=== PATIENT | female | born 1965 | race Caucasian/White ===

== ENCOUNTER 2016-04-24 08:22 | Day surgery (SDC) | payer OTHER ==
[2016-04-12 08:45] VITALS: BMI 20.9
[~2016-04-24 08:22] MED LIST: LACTATED RINGERS 1,000 ML IV SCH
[2016-04-24 09:10] VITALS: RESP 18; TEMP 98.2
[2016-04-24] MEDS ORDERED: LIDOCAINE 1% 20 ML VIAL (10MG/ML) FOR IV START INTRADERMA ONE (09:10)
[2016-04-24] MEDS ORDERED: MIDAZOLAM 2 MG/2 ML VIAL ONE (09:21)
[2016-04-24] MEDS ORDERED: BUPIVACAINE (PF) 0.5% 30 ML VIAL ONE (09:21)
--- NOTE | 2016-04-24 09:51 | P.PCN ---
Date of Procedure: 04/24/16 Preoperative Diagnosis: Lumbar spondylosis without myelopathy Postoperative Diagnosis: Same as above Procedure(s) Performed: Lumbar bilateral medial branch block under fluoroscopic guidance Anesthesia: MAC Surgeon: Salinas Dixon Pathology: none sent Condition: stable Disposition: PACU Description of Procedure: The patient was seen in preop holding area consent was obtained then she was brought into the procedure room and placed in prone position. Skin was prepped with DuraPrep and draped in a sterile manner. Lidocaine 1% was used to numb the skin up at the target points that were chosen as follows: For the L5-S1 level which corresponds to the dorsal ramus of L5 the target points were the superior medial aspect of the sacral ala on each side of the spine on the AP view of fluoroscopy and for the L3 and L4 medial branches the target points were the connection between the transverse process and the superior articular process of L4 and L5 vertebra respectively on the oblique view of fluoroscopy. I used 22-gauge 3-1/2 inch Quincke spinal needles for this procedure and after contacting bone at the target points mentioned above I injected 1 mL of Marcaine 0.5%. No steroids were given during this procedure and no IV fentanyl was given either. Patient tolerated procedure well.
[2016-04-24 10:40] VITALS: BP 119/61; PULSE 77
[2016-04-24] MEDS ORDERED: IV FLUID CONTINUATION 1,000 ML IV ONE (10:40)
--- NOTE | 2016-04-24 11:14 | FL ---
FLUOROSCOPY 7 seconds of fluoroscopy time were utilized during lumbar facet block. 1 images document the procedur e.
== END 2016-04-24 10:48 | disposition home or self-care (01) ==
LOC: ORPAIN 08:22
PROVIDERS: ATTEND Anesthesiology
DX: M47.816 Spondylosis without myelopathy or radiculopathy, lumbar region (principal); Z88.8 Allergy status to other drugs, medicaments and biological substances
CPT/HCPCS: 81025; 64493; 64494; 64495; J2250

== ENCOUNTER → 2016-05-21 | Outpatient (CLI) | payer OTHER ==
--- NOTE | 2016-05-21 08:00 | USB ---
Reason for exam: clinical finding. Physical Findings: Nurse Summary: all soft, movable, nodular (nurse ts). US Breast LT Left breast ultrasound including all four quadrants, the retroareolar region and axilla demonstrates no cystic or solid lesion seen, dense tissue. These results were verbally communicated with the patient and result sheet given to the patient on 05/21/16. ASSESSMENT: Negative, BI-RAD 1 RECOMMENDATION: Follow-up diagnostic mammogram of both breasts in 6 months. Back on schedule for October 2016.
== END | disposition home or self-care (01) ==
LOC: RADUSWWP 06:56
PROVIDERS: ATTEND Internal Medicine
DX: R92.8 Other abnormal and inconclusive findings on diagnostic imaging of breast (principal)

== ENCOUNTER 2016-06-13 06:36 | Day surgery (SDC) | payer OTHER ==
[2016-06-12 12:05] VITALS: BMI 20.1
[2016-06-13] MEDS ORDERED: LACTATED RINGERS 1,000 ML IV SCH (07:45)
[2016-06-13 07:47] VITALS: RESP 16; TEMP 98.3
[2016-06-13] MEDS ORDERED: LIDOCAINE 1% 20 ML VIAL (10MG/ML) FOR IV START INTRADERMA ONE (07:52)
[2016-06-13] MEDS ORDERED: MIDAZOLAM 2 MG/2 ML VIAL ONE (08:20)
[2016-06-13] MEDS ORDERED: fentaNYL (PF) 50 MCG/ML 2 ML AMP ONE (08:20)
[2016-06-13] MEDS ORDERED: TRIAMCINOLONE ACETONIDE 40 MG/ML 1 ML VIAL ONE (08:20)
[2016-06-13] MEDS ORDERED: IV FLUID CONTINUATION 1,000 ML IV ONE ×2 (08:48)
--- NOTE | 2016-06-13 08:55 | P.PCN ---
Date of Procedure: 06/13/16 Surgeon: Alex Adams Pathology: none sent Condition: stable Disposition: PACU Description of Procedure: PREOPERATIVE DIAGNOSIS: Lumbar spondylosis without myelopathy and facet arthropathy POSTOPERATIVE DIAGNOSIS: Lumbar spondylosis without myelopathy and facet arthropathy PROCEDURES: Right Radiofrequency thermocoagulation, L3, L4, and L5 medial branch , with fluoroscopic guidance. ANESTHESIA: 1% lidocaine plain; Conscious sedation with versed/fentanyl EBL: Minimal PROCEDURE INDICATION: The patient with low back pain secondary to lumbar arthropathy who had more than 50% relief of pain with previous diagnostic lumbar medial branch block with bupivacaine. Patient presents for right lumbar RFA today; no use of blood thinners. PROCEDURE DESCRIPTION / TECHNIQUE: The patient was seen and identified in the preoperative area. Risks, benefits, complications, and alternatives were discussed with the patient (including but not limited to incomplete pain relief , bleeding, infection, nerve damage, and allergies to medications), the patient agreed to proceed with the procedure and signed the consent after all questions were answered. Patient was taken to the OR and time out was completed to verify proper patient , position, laterality of pain, and allergies. Pt was placed in the prone position. IV was started. Vital signs remained stable throughout the procedure. A pillow was placed under the patients chest to decrease lordosis. The lumbosacral area was prepped and draped in the usual sterile fashion. Vital signs were closely monitored during the procedure. Conscious sedation was used during the procedure to decrease patients anxiety. Using AP and then oblique fluoroscopy, the eye of the Luis Armando dog corresponding to the connection between the superior and transverse articular processes of right L4, L5 and top of the sacrum were identified, marked, and localized with 1% lidocaine. Subsequently, a 20 gauge, 100-mm radiofrequency cannula with a 10-mm active tip was advanced guided by fluoroscopy to each of the eyes of the Luis Armando dog at right L3, L4, and L5 medial branches. Each site then underwent sensory testing at 50 Hz and 0 to 1 volt and motor testing at 2 Hz and 0 to 3 volt with local stimulation, but no radicular symptoms down the legs. Thereafter the right L3, L4, and L5 medial branch sites underwent radiofrequency thermocoagulation at 80 degrees Celsius for 90 seconds after injecting 0.5 ml of PF lidocaine 1%. After thermocoagulation, 1 ml of the block solution containing Kenalog 40 mg and 2 mL of preservative-free normal saline was injected at the right L3, L4, and L5 medial branch levels after negative aspiration of CSF and blood and with no paresthesias. Cannulas were retracted while injecting lidocaine 1% until the needles were removed. At the end of the procedure, the skin was cleansed and bandages were applied. COMPLICATIONS: No acute complications. DISPOSITION / PLANS: The patient was placed in a supine position and transferred to the recovery area in a stable condition for observation and was discharged from the recovery room after meeting discharge criteria. Home discharge instructions given to the patient by the staff. The patient was reexamined prior to discharge. The patient will schedule a follow up for left lumbar RFA in 4-6 weeks.
--- NOTE | 2016-06-13 08:58 | FL ---
FLUOROSCOPY 14 seconds of fluoroscopy time were utilized during radiofrequency ablation. 3 images document the pr ocedure.
[2016-06-13 09:04] VITALS: BP 125/76; PULSE 82
== END 2016-06-13 09:16 | disposition home or self-care (01) ==
LOC: ORPAIN 06:36
PROVIDERS: ATTEND Anesthesiology
DX: M47.816 Spondylosis without myelopathy or radiculopathy, lumbar region (principal); M46.96 Unspecified inflammatory spondylopathy, lumbar region; F41.9 Anxiety disorder, unspecified; Z88.5 Allergy status to narcotic agent; Z79.1 Long term (current) use of non-steroidal anti-inflammatories (NSAID); Z79.82 Long term (current) use of aspirin; Z79.891 Long term (current) use of opiate analgesic; Z79.899 Other long term (current) drug therapy
CPT/HCPCS: 81025; 64635; 64636 ×2; 99152; J2250; J3301; J3010

== ENCOUNTER → 2017-10-13 | Outpatient (CLI) | payer OTHER ==
--- NOTE | 2017-10-13 23:07 | MR ---
EXAMINATION TYPE: MR lumbar spine wo con DATE OF EXAM: 10/13/2017 COMPARISON: MRI lumbar spine August 18, 2015. Lumbar spine x-ray November 03, 2013. HISTORY: Chronic back pain and lumbar region disc degeneration per order., Bad back pain for 20 years going into bilateral lower extremities per patient. TECHNIQUE: Multiplanar, multisequence imaging of the lumbar spine is performed without IV contrast. FINDINGS: Sagittal images of the lumbar spine show vertebral body heights and alignment to appear sat isfactory. Multilevel disc desiccation is redemonstrated with relative sparing of L1-L2 and L3-L4 lev els. There is moderate disc space narrowing L4-L5 and L5-S1 levels redemonstrated without significa nt interval change. Increased signal posteriorly consistent with annular tear L5-S1 level is redemons trated. The conus medullaris is normal in position and signal ending mid L1 level. The bone marrow s ignal intensity is within normal limits. No significant spurring is present. Axial images show the T12-L1, L1-L2, and L2-L3 levels also appear within normal limits. Axial images at L3-L4 level show mild right greater than left facet arthropathy, spinal canal is pres erved, bilateral neuroforamina are patent. Axial images at L4-L5 level we demonstrate mild to moderate facet arthropathy bilaterally. There is c entral disc protrusion minimally effacing the anterior thecal sac on axial image 10. Bilateral neural foramina are patent. No significant change from prior study is seen. Axial images at L5-S1 level shows mild facet degenerative changes bilaterally. There is central disc protrusion seen with spinal canal is preserved. Bilateral neural foramina are patent. No significant change from prior study is seen. No suspicious retroperitoneal findings are noted. Impression: Some multilevel degenerative changes in lower lumbar spine as detailed above, no signific ant change from prior MRI.
== END | disposition home or self-care (01) ==
LOC: RADMRIMAIN 20:37
PROVIDERS: ATTEND Family Medicine
DX: M99.73 Connective tissue and disc stenosis of intervertebral foramina of lumbar region (principal); M47.817 Spondylosis without myelopathy or radiculopathy, lumbosacral region; M46.96 Unspecified inflammatory spondylopathy, lumbar region
CPT/HCPCS: 72148

== ENCOUNTER 2017-11-14 10:58 | Day surgery (SDC) | payer OTHER ==
[2017-11-11 15:36] VITALS: BMI 24.2
[~2017-11-14 10:58] MED LIST changes: +LIDOCAINE 1% 20 ML VIAL (10MG/ML) FOR IV START INTRADERMA PRN; +MIDAZOLAM 2 MG/2 ML VIAL IV PRN
[2017-11-14 11:26] VITALS: TEMP 98.1
[2017-11-14] MEDS ORDERED: fentaNYL (PF) 50 MCG/ML 2 ML AMP IV ONE (12:45)
[2017-11-14] MEDS ORDERED: PROPOFOL 10 MG/ML 20 ML VIAL IV ONE (12:58)
[2017-11-14] MEDS ORDERED: LIDOCAINE 1% INJ 10MG/ML (20 ML MDV) ONE (12:58)
--- NOTE | 2017-11-14 13:07 | P.GSHP ---
History of Present Illness H&P Date: 11/14/17 Chief Complaint: Screening colonoscopy This is a 51-year-old female who presents today for screening colonoscopy. Patient denies any significant GI complaints. Past Medical History Past Medical History: Asthma, Cancer, GERD/Reflux, Hearing Disorder / Deafness Additional Past Medical History / Comment(s): Cervical with cone procedure. No chemo or radiation therapy needed. 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 History of Any Multi-Drug Resistant Organisms: None Reported Date of last positivie culture/infection: None MDRO Source:: None Additional Past Surgical History / Comment(s): Cervical Cone biopsy Past Anesthesia/Blood Transfusion Reactions: No Reported Reaction Additional Past Alcohol Use History / Comment(s): NONE X 9 YRS, Smokes 1/2 PPD since a young women. - Past Family History Mother Family Medical History: No Reported History Medications and Allergies Home Medications Medication Instructions Recorded Confirmed Type Baclofen 10 mg PO HS 01/23/16 11/14/17 History HYDROcodone/APAP 10-325MG [[place] 10 mg PO Q6H PRN 01/23/16 11/14/17 History 10-325] Ibuprofen [Motrin] 800 mg PO TID PRN 01/23/16 11/14/17 History Ipratropium-Albuterol Nebulize 1 inh INHALATION BID PRN 01/23/16 11/14/17 History [Duoneb 0.5 mg-3 mg/3 ml Soln] Sertraline [Zoloft] 100 mg PO DAILY 01/23/16 11/14/17 History Ipratropium/Albuterol Sulfate 2 puff INHALATION QID PRN 06/12/16 11/14/17 History [Combivent Respimat Inhaler] Omeprazole [PriLOSEC] 20 mg PO AC-BRKFST 06/12/16 11/14/17 History Albuterol Inhaler [Ventolin Hfa 1 - 2 puff INHALATION RT-Q6H PRN 11/11/17 History Inhaler] Budesonide [Pulmicort Flexhaler] 2 puff INHALATION BID 11/11/17 11/14/17 History Lisinopril [Zestril] 10 mg PO DAILY 11/11/17 11/14/17 History Montelukast [Singulair] 10 mg PO HS 11/11/17 11/14/17 History Allergies Allergy/AdvReac Type Severity Reaction Status Date / Time tramadol [From Ultram] Allergy Seizures Verified 11/14/17 11:25 Surgical - Exam Vital Signs Temp Pulse Resp BP Pulse Ox 98.1 F 101 H 16 144/84 96 11/14/17 11:25 11/14/17 11:25 11/14/17 11:25 11/14/17 11:25 11/14/17 11:25 - General well developed, well nourished, no distress - Eyes PERRL - ENT normal pinna - Neck no masses - Respiratory normal expansion - Cardiovascular Rhythm: regular - Abdomen Abdomen: soft, non tender Assessment and Plan Assessment: We'll perform screening colonoscopy.
--- NOTE | 2017-11-14 13:16 | P.OP ---
Date of Procedure: 11/14/17 Preoperative Diagnosis: Screening colonoscopy Postoperative Diagnosis: Poor colonic prep Normal colonoscopy to hepatic flexure Procedure(s) Performed: Colonoscopy Anesthesia: MAC Surgeon: King Demarco Pathology: none sent Condition: stable Disposition: PACU Description of Procedure: Patient's placed on the endoscopy table in the lateral position. She received IV sedation. Digital rectal exam was performed which revealed a large amount of liquid stool in the colon. The flexible colonoscope was then placed patient anus and passed throughout the colon. Scope could not pass beyond the hepatic flexure secondary to poor prep of the colon. There is a large amount liquid stool seen throughout the colon. This point scope was withdrawn. The transverse colon descending colon and sigmoid colon appeared normal however prep was quite poor. Scope was then brought back the rectum and this appeared normal. Scope was withdrawn for patient.
[2017-11-14 13:29] VITALS: RESP 18
[2017-11-14 14:08] VITALS: BP 131/78; PULSE 89
== END 2017-11-14 14:25 | disposition home or self-care (01) ==
LOC: ORWHC2ENDO 10:58
PROVIDERS: ATTEND Surgery
DX: Z12.11 Encounter for screening for malignant neoplasm of colon (principal); J45.909 Unspecified asthma, uncomplicated; F17.210 Nicotine dependence, cigarettes, uncomplicated; K21.9 Gastro-esophageal reflux disease without esophagitis; H91.91 Unspecified hearing loss, right ear; Z79.899 Other long term (current) drug therapy; Z88.5 Allergy status to narcotic agent; F32.9 Major depressive disorder, single episode, unspecified; Z85.41 Personal history of malignant neoplasm of cervix uteri
CPT/HCPCS: 45378; J2001; J3010; J2704

== ENCOUNTER → 2017-12-05 | Outpatient (CLI) | payer OTHER ==
--- NOTE | 2017-12-09 13:27 | MM ---
Reason for exam: screening (asymptomatic). History: Patient is postmenopausal, history of other cancer, and is nulliparous. Physical Findings: A clinical breast exam by your physician is recommended on an annual basis and results should be correlated with mammographic findings. MG 3D Screening Mammo W/Cad Bilateral CC and MLO view(s) were taken. The breast tissue is heterogeneously dense. This may lower the sensitivity of mammography. There is no discrete abnormality. ASSESSMENT: Incomplete: need additional imaging evaluation, BI-RAD 0 RECOMMENDATION: Ultrasound of the left breast. (palpable mass) [facility] will attempt to contact patient to return for ultrasound.
== END | disposition home or self-care (01) ==
LOC: RADMAMWWP 11:49
PROVIDERS: ATTEND Family Medicine
DX: Z12.31 Encounter for screening mammogram for malignant neoplasm of breast (principal)
CPT/HCPCS: 77063; 77067

== ENCOUNTER → 2017-12-17 | Outpatient (CLI) | payer OTHER ==
[2017-12-11 14:55] VITALS: BMI 23.6
[2017-12-17 12:17] VITALS: BP 171/94; PULSE 90; RESP 18
--- NOTE | 2017-12-18 11:48 | P.PAINPG ---
Subjective Progress Note Date: 12/17/17 This is follow-up visit for this patient with a history of severe and chronic low back pain secondary to lumbar degenerative disc disease, lumbar facet arthropathy, We have done an interventional pain procedure , diagnostic medial branch block which was possibly Related the Radiofrequency Ablation of the Medial Branch on the Right Side she had a good result and she was supposed to the radiofrequency done on the left side, she couldn't discriminate because the patient started a new job and she couldn't take any time off The patient currently on [place] 10/325 every 6 hours Patient denies any side effect of the medication , patient denies any excessive drowsiness or sleepiness, patient denies any suicidal ideation, Patient reported that the current medication is helping to control the pain and improve the activity of daily livings, Patient denies any motor or sensory deficit, denies any change in the bowel movement or urination, patient denies any fever or night sweats Objective - Vital Signs Vital signs: Vital Signs Temp Pulse 90 12/17/17 12:10 Resp 18 12/17/17 12:10 BP 171/94 12/17/17 12:10 Pulse Ox 97 12/17/17 12:10 - Exam Physical Examinations : 1-Constitutiona : Cooperative , not in acute distress . 2-HEENT : nech ; supple , no Lymphadenopathy , normal thyroid size . eyes : no ptosis , no icterus , no photophobia . ENT : normal of hearing , normal oropharynx , no Thrush . 3- Respiratory : Chest clear to auscultations Bilaterally , no wheezing , no Rhonchi . 4- Cardiovascular : regular rate and rhythem , S1 , S2 , no S3 , no S4. 5- Gastrointestinal : abdomen soft no tenderness , bowel sounds , no organomegally . 6- Genitourinary : Defferred . 7- neurologic : Cranial nerve II to XII intact , no focal neurological deffecit . 8-psychatric : alert , oriented X 3 , appropriate affect , intact judgment and insight . 9-Lymphatic : no Lymphadenopathy . 10- musculoskeltal : Lumber spine moter stegnth lower extremities ,thigh and legs 5/5 Right side , 5/5 Left side deep tendon reflexes : normal Knee Jerk , normal ankle Jerk positive lumber facet Loading Test Range of motion of the lumbar spine Flexion 30 degrees, extension 10 degrees strait leg raising test , positive at degree Fabere test positive RT and positive LT . Sever tenderness over the Sacroiliac joint on the R and L sides Severe tenderness over the right trochanteric bursa Assessment and Plan Assessment: Assessment and plan= chronic low back pain secondary to lumbar degenerative disc disease , lumbar spondylosis with lumbar facet arthropathy ., Bilateral sacroiliitis, right trochanteric bursitis chronic and current use of high-risk medication (opioids) Patient denies any side effects of the current pain medication and the current treatment/medication helping the patient to do activity of daily living , Diagnoses, prognosis, treatment options, including but not limited to physical therapy, medication management, interventional therapies, and surgery, were discussed with the patient All the questions answered The narcotic consent was signed and patient agreed and understood the side effects and complications of opioid treatment. Patient signed the narcotic agreement, and was orally counseled, not to overuse, not to abuse, not to Divert , not tp sell pain medication, and to take it as prescribed only, Patient was counseled not to drive or operate heavy equipment while using narcotic medication, and advised not to use alcohol or any Illicit drugs while using the narcotis, the patient's verbalized understanding that lack of compliance with any of the above instructions, will likely to cause discharge from, the pain service, not to renew his narcotic prescriptions Medication managements= patient will be given prescription for [place] 10/325 every 8 hours dispense 90, MAPS reviewed, NEXT VISIST WE WILL do urine drug screen.she signed a narcotic agreement Risk and benefits of opioid discussed with the patient, and she understood the risk Interventions= patient will be good candidate to have radiofrequency ablation of the medial branch lumbar area L3-4 , L4-5 , L5-S1 . Plan patient will be good candidate to have right side trochanteric bursa steroid injection can be none of the symptoms do the radiofrequency , PQRS Measure Charge Sheet Measure #130: Documentation of Current Meds in Medical Chart: Patient's medications documented in chart Measure #226: Tobacco Use: Screen & Cessation Intervention: Pt screened for tobacco use AND intervention given Measure #111: Pneumonia Vaccination: Pneumococcal vaccine NOT administered or previously given Measure #47: Advance Care Plan: Advance care planning discussed & documented, pt chose/unable to give Measure #412: Opioid Treatment Agreement: Documented signed opioid trtmnt agreemnt min once during opioid trtmnt Measure #408: Opioid Therapy Follow-up Evaluation: Patient had f/u eval minimum every 3 months during opioid therapy Measure #317: Preventitive Care & Scrn High Bld Press & F/U: Pre-hypertensive or hypertensive BP documented, pt will f/u with PCP Measure #128: Body Mass Index (BMI) Screening & Follow-up: BMI documented within normal parameters Measure #131: Pain Assessment & Follow-up: Pain positive & plan documented, Follow-up scheduled Measure #431: Unhealthy Alcohol Use Preventative Care & Scrn: Patient not identified as an unhealthy alcohol user PQRS Narrative: Smoking Status Current every day smoker Do You Want the Pneumonia No Vaccine AT THIS TIME? Blood Pressure 171/94 Pain Intensity [Lower Back] 10 Scale Used Numeric (1 - 10) Hx Alcohol Use (MH) No: NONE X 9 YRS Home Medications: Ambulatory Orders Baclofen 10 mg PO HS 01/23/16 Ibuprofen [Motrin] 800 mg PO TID PRN 01/23/16 Ipratropium-Albuterol Nebulize [Duoneb 0.5 mg-3 mg/3 ml Soln] 1 inh INHALATION BID PRN 01/23/16 Sertraline [Zoloft] 100 mg PO DAILY 01/23/16 Ipratropium/Albuterol Sulfate [Combivent Respimat Inhaler] 2 puff INHALATION QID PRN 06/12/16 Omeprazole [PriLOSEC] 20 mg PO AC-BRKFST 06/12/16 Albuterol Inhaler [Ventolin Hfa Inhaler] 1 - 2 puff INHALATION RT-Q6H PRN Lisinopril [Zestril] 10 mg PO DAILY 11/11/17 Montelukast [Singulair] 10 mg PO HS 11/11/17 Symbicort 2 puff INHALATION BID 12/11/17 Aspirin [Adult Low Dose Aspirin EC] 1 tab PO DAILY 12/17/17 HYDROcodone/APAP 10-325MG [[place] 10-325] 1 tab PO Q8HR PRN 30 Days #90 tab 12/17 Controlled Substance Measures - Controlled Substance Measures Is patient prescribed a controlled substance at discharge?: Yes When asked, does pt state using other controlled substances?: No If prescribed controlled substance>3 days was MAPS reviewed?: Yes If Rx opioid, was Start Talking consent form obtained?: Yes If opioid is for acute pain is fill amount 7 days or less?: No Was information provided regarding opioid addiction?: Yes
== END | disposition home or self-care (01) ==
LOC: PNWHC3 11:59
PROVIDERS: ATTEND Specialist
DX: G89.29 Other chronic pain (principal); M51.36 Other intervertebral disc degeneration, lumbar region; M47.816 Spondylosis without myelopathy or radiculopathy, lumbar region; M46.96 Unspecified inflammatory spondylopathy, lumbar region; M46.1 Sacroiliitis, not elsewhere classified; M70.61 Trochanteric bursitis, right hip; F17.200 Nicotine dependence, unspecified, uncomplicated; Z79.891 Long term (current) use of opiate analgesic; Z79.899 Other long term (current) drug therapy; Z79.82 Long term (current) use of aspirin
CPT/HCPCS: 99211

== ENCOUNTER → 2017-12-19 | Outpatient (CLI) | payer OTHER ==
--- NOTE | 2017-12-23 08:14 | USB ---
Reason for exam: additional evaluation requested from abnormal screening. History: Patient is postmenopausal, history of other cancer, and is nulliparous. Indicated problem(s): palpable abnormality in the left breast. Physical Findings: Nurse did not find any significant physical abnormalities on exam. US Breast Workup LT Technologist: Bess Lopes, RT (R)(M) Left complete breast ultrasound includes all four quadrants, the retroareolar region and axilla. Finding demonstrates no cystic or solid lesion seen. The patient denies any palpable abnormality currently. These results were verbally communicated with the patient and result sheet given to the patient on 12/19/17. ASSESSMENT: Negative, BI-RAD 1 RECOMMENDATION: Return to routine screening mammogram schedule for both breasts. Manage on a clinical basis with regard to any suspicious palpable abnormalities.
== END | disposition home or self-care (01) ==
LOC: RADUSWWP 15:39
PROVIDERS: ATTEND Family Medicine
DX: Z53.9 Procedure and treatment not carried out, unspecified reason (principal)

== ENCOUNTER 2018-01-01 07:03 | Day surgery (SDC) | payer OTHER ==
[2017-12-29 15:28] VITALS: BMI 24.2
[~2018-01-01 07:03] MED LIST changes: -LIDOCAINE 1% 20 ML VIAL (10MG/ML) FOR IV START INTRADERMA PRN; -MIDAZOLAM 2 MG/2 ML VIAL IV PRN
[2018-01-01 07:39] VITALS: RESP 16; TEMP 97.5
[2018-01-01] MEDS ORDERED: IPRATROPIUM-ALBUTEROL 3 ML NEB INHALATION STA (07:45)
[2018-01-01] MEDS ORDERED: LIDOCAINE 1% 20 ML VIAL (10MG/ML) FOR IV START INTRADERMA ONE (07:56)
--- NOTE | 2018-01-01 08:33 | P.PCN ---
Date of Procedure: 01/01/18 Surgeon: Salinas Dixon Pathology: none sent Condition: stable Disposition: PACU Description of Procedure: PREOPERATIVE DIAGNOSIS: Lumbar spondylosis without myelopathy POSTOPERATIVE DIAGNOSIS: Lumbar spondylosis without myelopathy PROCEDURES : Radiofrequency thermocoagulation L3-L4, L4-L5, and L5-S1 with fluoroscopic guidance ANESTHESIA: IV moderate conscious sedation with versed and fentanyl and local infiltration with lidocaine 1% 5 ml EBL: Minimal PROCEDURE INDICATION: The patient with low back pain secondary to lumbar facet arthropathy who had more than 50% relief of her pain with previous diagnostic lumbar medial branch block with bupivacaine. PROCEDURE DESCRIPTION / TECHNIQUE: The patient was seen and identified in the preoperative area. Risks, benefits, complications, including but not limited to risk of infection ,bleeding , allergic reactions to the medications and no complete pain relief , and alternatives were discussed with the patient, the patient agreed to proceed with the procedure and signed the consent. IV was started. Vital signs remained stable throughout the procedure. Patient was taken to the OR and time out was completed. The patient was placed in the prone position on the procedure table. The lumber area was prepped and draped in the usual sterile fashion. . Vital signs were closely monitored during the procedure .IV sedation was used during the procedure to decrease patients anxiety. The target points were identified as follows: For the L5-S1 level which corresponds to the dorsal ramus of L5 the target point was at the superior medial aspect of the sacral ala on the Rt side of the spine on the AP view of fluoroscopy and for the L2, L3, and L4 medial branches the target points were at the connection between the transverse process and the superior articular process of L3, L4, and L5 vertebra respectively on the Rtoblique view of fluoroscopy. skin was marked, and localized with 1% lidocaineat these points. Subsequently, an 18 [id number] radiofrequency needles with a 10-mm curved active tips were advanced guided by fluoroscopy to each of the target points mentioned above in a superior medial direction to get the active tips as parallel as possible to the medial branches tracks. AP, oblique, and lateral views of fluoroscopy were used to verify needle tips position. Each level then underwent motor testing at 2.5 Hz and 0 to 3 volt with local stimulation, but no radicular symptoms down the legs. Thereafter radiofrequency thermocoagulation at 80 degrees celsius for 90 seconds after injecting 1 ml of PF ropivacaine 0.5%(3 mls) with 40 mg of Depo-Medrol. At the end of the procedure, the skin was cleansed and bandages were applied. COMPLICATIONS: No acute complications. DISPOSITION / PLANS: The patient was placed in a supine position and transferred to the recovery area in a stable condition for observation and was discharged from the recovery room after meeting discharge criteria. Home discharge instructions given to the patient by the staff. The patient was reexamined prior to discharge. The patient will schedule a follow up in the clinic in 2-4 weeks.
[2018-01-01] MEDS ORDERED: IV FLUID CONTINUATION 1,000 ML IV ONE ×2 (08:41)
[2018-01-01 09:08] VITALS: BP 138/86; PULSE 77
--- NOTE | 2018-01-01 11:56 | FL ---
Fluoroscopy HISTORY: Pain 14 seconds fluoroscopy time supplied to the referring clinician. 3 intraoperative C-arm images docum ent the procedure. See dictated report from anesthesia.
== END 2018-01-01 09:26 | disposition home or self-care (01) ==
LOC: ORPAIN 07:03
PROVIDERS: ATTEND Anesthesiology
DX: G89.29 Other chronic pain (principal); M47.816 Spondylosis without myelopathy or radiculopathy, lumbar region; M51.36 Other intervertebral disc degeneration, lumbar region; M46.1 Sacroiliitis, not elsewhere classified; M70.61 Trochanteric bursitis, right hip; F17.200 Nicotine dependence, unspecified, uncomplicated; Z79.51 Long term (current) use of inhaled steroids; Z79.899 Other long term (current) drug therapy; Z79.82 Long term (current) use of aspirin; Z88.5 Allergy status to narcotic agent
CPT/HCPCS: 94640; 64635; 64636; J2250; J1030; J2001; J3010; 99152

== ENCOUNTER → 2018-01-14 | Outpatient (CLI) | payer OTHER ==
[2018-01-14 14:03] VITALS: BP 144/93; PULSE 86; RESP 18
--- NOTE | 2018-01-15 06:56 | P.PAINPG ---
Subjective Progress Note Date: 01/14/18 This is follow-up visit for this patient with a history of severe and chronic low back pain secondary to lumbar degenerative disc disease, lumbar facet arthropathy, We have done an interventional pain procedure , the frequency ablation of the medial branch on the right side and she is supposed to have the left side 2017 The patient currently on [place] 10/325 every 6 hours Patient denies any side effect of the medication , patient denies any excessive drowsiness or sleepiness, patient denies any suicidal ideation, Patient reported that the current medication is helping to control the pain and improve the activity of daily livings, Patient denies any motor or sensory deficit, denies any change in the bowel movement or urination, patient denies any fever or night sweat Physical Examinations : 1-Constitutiona : Cooperative , not in acute distress . 2-HEENT : nech ; supple , no Lymphadenopathy , normal thyroid size . eyes : no ptosis , no icterus , no photophobia . ENT : normal of hearing , normal oropharynx , no Thrush . 3- Respiratory : Chest clear to auscultations Bilaterally , no wheezing , no Rhonchi . 4- Cardiovascular : regular rate and rhythem , S1 , S2 , no S3 , no S4. 5- Gastrointestinal : abdomen soft no tenderness , bowel sounds , no organomegally . 6- Genitourinary : Defferred . 7- neurologic : Cranial nerve II to XII intact , no focal neurological deffecit . 8-psychatric : alert , oriented X 3 , appropriate affect , intact judgment and insight . 9-Lymphatic : no Lymphadenopathy . 10- musculoskeltal : Lumber spine moter stegnth lower extremities ,thigh and legs 5/5 Right side , 5/5 Left side deep tendon reflexes : normal Knee Jerk , normal ankle Jerk positive lumber facet Loading Test Range of motion of the lumbar spine Flexion 30 degrees, extension 10 degrees strait leg raising test , positive at degree Fabere test positive RT and positive LT . Sever tenderness over the Sacroiliac joint on the R and L sides Severe tenderness over the right trochanteric bursa Assessment and plan= chronic low back pain secondary to lumbar degenerative disc disease , lumbar spondylosis with lumbar facet arthropathy ., Bilateral sacroiliitis, right trochanteric bursitis chronic and current use of high-risk medication (opioids) Patient denies any side effects of the current pain medication and the current treatment/medication helping the patient to do activity of daily living , Diagnoses, prognosis, treatment options, including but not limited to physical therapy, medication management, interventional therapies, and surgery, were discussed with the patient All the questions answered The narcotic consent was signed and patient agreed and understood the side effects and complications of opioid treatment. Patient signed the narcotic agreement, and was orally counseled, not to overuse, not to abuse, not to Divert , not tp sell pain medication, and to take it as prescribed only, Patient was counseled not to drive or operate heavy equipment while using narcotic medication, and advised not to use alcohol or any Illicit drugs while using the narcotis, the patient's verbalized understanding that lack of compliance with any of the above instructions, will likely to cause discharge from, the pain service, not to renew his narcotic prescriptions Medication managements= patient will be given prescription for [place] 10/325 every 8 hours dispense 90, MAPS reviewed, NEXT VISIST WE WILL do urine drug screen.she signed a narcotic agreement Risk and benefits of opioid discussed with the patient, and she understood the risk Interventions= patient will be scheduled to have radiofrequency ablation of the medial branch lumbar area on the left side at L3 4/L4 5/L5-S1 , Objective - Vital Signs Vital signs: Vital Signs Temp Pulse 86 01/14/18 13:57 Resp 18 01/14/18 13:57 BP 144/93 01/14/18 13:57 Pulse Ox 97 01/14/18 13:57 Intake & Output 01/14/18 01/14/18 01/15/18 06:59 18:59 06:59 Weight 65.771 kg PQRS Measure Charge Sheet Measure #130: Documentation of Current Meds in Medical Chart: Patient's medications documented in chart Measure #226: Tobacco Use: Screen & Cessation Intervention: Pt screened for tobacco use AND intervention given Measure #111: Pneumonia Vaccination: Pneumococcal vaccine NOT administered or previously given Measure #47: Advance Care Plan: Advance care planning discussed & documented, pt chose/unable to give Measure #412: Opioid Treatment Agreement: Documented signed opioid trtmnt agreemnt min once during opioid trtmnt Measure #408: Opioid Therapy Follow-up Evaluation: Patient had f/u eval minimum every 3 months during opioid therapy Measure #317: Preventitive Care & Scrn High Bld Press & F/U: Pre-hypertensive or hypertensive BP documented, pt will f/u with PCP Measure #128: Body Mass Index (BMI) Screening & Follow-up: BMI documented within normal parameters Measure #131: Pain Assessment & Follow-up: Pain positive & plan documented, Follow-up scheduled Measure #431: Unhealthy Alcohol Use Preventative Care & Scrn: Patient not identified as an unhealthy alcohol user PQRS Narrative: Smoking Status Current every day smoker Do You Want the Pneumonia No Vaccine AT THIS TIME? Blood Pressure 144/93 Pain Intensity [Lower Back] 10 Scale Used Numeric (1 - 10) Hx Alcohol Use (MH) No: NONE X 9 YRS Home Medications: Ambulatory Orders Baclofen 10 mg PO HS 01/23/16 Ibuprofen [Motrin] 800 mg PO TID PRN 01/23/16 Ipratropium-Albuterol Nebulize [Duoneb 0.5 mg-3 mg/3 ml Soln] 1 inh INHALATION BID PRN 01/23/16 Sertraline [Zoloft] 100 mg PO DAILY 01/23/16 Ipratropium/Albuterol Sulfate [Combivent Respimat Inhaler] 2 puff INHALATION QID PRN 06/12/16 Omeprazole [PriLOSEC] 20 mg PO AC-BRKFST 06/12/16 Albuterol Inhaler [Ventolin Hfa Inhaler] 1 - 2 puff INHALATION RT-Q6H PRN Lisinopril [Zestril] 10 mg PO DAILY 11/11/17 Montelukast [Singulair] 10 mg PO HS 11/11/17 Budesonide/Formoterol Fumarate [Symbicort 80-4.5 Mcg Inhaler] 1 puff INHALATION BID 12/11/17 Aspirin [Adult Low Dose Aspirin EC] 81 mg PO DAILY 12/17/17 Beclomethasone Dipropionate [Qvar 80 mcg] 1 puff INHALATION DAILY 01/14/18 Budesonide [Pulmicort Flexhaler] 2 puff INHALATION DAILY PRN 01/14/18 HYDROcodone/APAP 10-325MG [[place] 10-325] 1 tab PO Q8HR PRN 30 Days #90 tab 01/14 Polyethylene Glycol 3350 [Miralax] 17 gm PO DAILY 01/14/18 Varenicline [Chantix Starter Pack] 0.5 mg PO BID 01/14/18 diphenhydrAMINE [Benadryl] 25 mg PO HS PRN 01/14/18 guaiFENesin [Mucinex] 600 mg PO BID PRN 01/14/18 Controlled Substance Measures - Controlled Substance Measures Is patient prescribed a controlled substance at discharge?: Yes When asked, does pt state using other controlled substances?: No If prescribed controlled substance>3 days was MAPS reviewed?: Yes If Rx opioid, was Start Talking consent form obtained?: Yes If opioid is for acute pain is fill amount 7 days or less?: No Was information provided regarding opioid addiction?: Yes
== END | disposition home or self-care (01) ==
LOC: PNWHC3 12:45
PROVIDERS: ATTEND Specialist
DX: G89.29 Other chronic pain (principal); M51.36 Other intervertebral disc degeneration, lumbar region; M47.816 Spondylosis without myelopathy or radiculopathy, lumbar region; M46.96 Unspecified inflammatory spondylopathy, lumbar region; M46.1 Sacroiliitis, not elsewhere classified; M70.61 Trochanteric bursitis, right hip; Z79.891 Long term (current) use of opiate analgesic; F17.200 Nicotine dependence, unspecified, uncomplicated; Z79.899 Other long term (current) drug therapy; Z79.82 Long term (current) use of aspirin; Z79.51 Long term (current) use of inhaled steroids; Z98.890 Other specified postprocedural states
CPT/HCPCS: 99211

== ENCOUNTER 2018-01-15 06:27 | Day surgery (SDC) | payer OTHER ==
[2018-01-14 12:33] VITALS: BMI 23.3
[2018-01-15 07:29] VITALS: RESP 16; TEMP 98.3
[2018-01-15] MEDS ORDERED: LIDOCAINE 1% 20 ML VIAL (10MG/ML) FOR IV START INTRADERMA ONE (07:33)
--- NOTE | 2018-01-15 08:05 | P.PCN ---
Date of Procedure: 01/15/18 Procedure(s) Performed: PREOPERATIVE DIAGNOSIS: 1-Lumbar Spondylosis with Facet Arthropathy without myelopathy. POSTOPERATIVE DIAGNOSIS: 1- Lumbar Spondylosis with Facet Arthropathy without myelopathy. PROCEDURES : Left Radiofrequency thermocoagulation, L3-L4, L4-L5, and L5-S1 medial branch, with fluoroscopic guidance ANESTHESIA: Moderate sedation with intravenous versed 4 mg and fentaneyl 100 mcg, and local infiltration with Ropivacaine 0.5 % . EBL: Minimal PROCEDURE INDICATION: The patient with low back pain secondary to lumbar facet arthropathy who had more than 50% relief of her pain with previous diagnostic lumbar medial branch block with bupivacaine. PROCEDURE DESCRIPTION / TECHNIQUE: The patient was seen and identified in the preoperative area. Risks, benefits, complications, including but not limited to risk of infection ,bleeding , allergic reactions to the medications and no complete pain releife , and alternatives were discussed with the patient, the patient agreed to proceed with the procedure and signed the consent. IV was started. Vital signs remained stable throughout the procedure. Patient was taken to the OR and time out was completed. The patient was placed in the prone position on the procedure table. The lumber area was prepped and draped in the usual sterile fashion. . Vital signs were closely monitored during the procedure .IV sedation was used during the procedure to decrease patients anxiety. Using AP and then oblique fluoroscopy, the ``eye of the Luis Armando dog corresponding to the connection between the superior and transverse articular processes of left L3, L4, and L5 were identified, marked, and localized with 1 % lidocaine. Subsequently, a [id number] radiofrequency cannula with a 10- mm active tip was advanced guided by fluoroscopy to each of the ``eyes of the Luis Armando dog at left L3, L4, and L5. Each site then underwent sensory testing at 50 Hz and 0 to 1 volt and motor testing at 2.5 Hz and 0 to 3 volt with local stimulation, but no radicular symptoms down the legs. Thereafter the left L3-4, L4-5, and L5-S1 sites underwent radiofrequency thermocoagulation at 80 degrees celsius for 90 seconds after injecting 0.5 ml of PF Ropivacaine 1ml then After the thermocoagulation done , 1 ml of the block solution containing Kenalog 40 mg and 3 ml of Ropivacaine 0.5% was injected at the left L3-4 , L4-5 , and L5-S1, levels after negative aspiration of CSF and blood and with no paresthesias. Cannulas were retracted while injecting lidocaine 1% until the needle is out. At the end of the procedure, the skin was cleansed and bandages were applied. COMPLICATIONS: No acute complications. DISPOSITION / PLANS: The patient was placed in a supine position and transferred to the recovery area in a stable condition for observation and was discharged from the recovery room after meeting discharge criteria. Home discharge instructions given to the patient by the staff. The patient was reexamined prior to discharge. The patient will schedule a follow up in the clinic in 2-4 weeks.
[2018-01-15] MEDS ORDERED: IV FLUID CONTINUATION 850 ML IV ONE (08:15)
[2018-01-15 08:38] VITALS: BP 135/82; PULSE 81
--- NOTE | 2018-01-15 08:54 | FL ---
EXAMINATION TYPE: FL guided pain mgmt statistic DATE OF EXAM: 01/15/2018 HISTORY: Flouroscopy time 8 seconds of fluoroscopy provided. IMPRESSION: 1. Fluoroscopy time.
== END 2018-01-15 08:44 | disposition home or self-care (01) ==
LOC: ORPAIN 06:27
PROVIDERS: ATTEND Specialist
DX: M47.816 Spondylosis without myelopathy or radiculopathy, lumbar region (principal); J45.909 Unspecified asthma, uncomplicated; K21.9 Gastro-esophageal reflux disease without esophagitis; Z88.5 Allergy status to narcotic agent; Z85.41 Personal history of malignant neoplasm of cervix uteri
CPT/HCPCS: 80307; 64635; 64636 ×2; G0482; J2250; J3301; J3010; 99152

== ENCOUNTER → 2018-02-10 | Outpatient (CLI) | payer OTHER ==
[2018-02-10 14:34] VITALS: BP 162/98; PULSE 107; RESP 16
--- NOTE | 2018-02-11 07:43 | P.PAINPG ---
Subjective Progress Note Date: 02/10/18 This is follow-up visit for this patient with a history of severe and chronic low back pain secondary to lumbar degenerative disc diseases , lumbar spondylosis with facet arthropathy, we have done the radiofrequency ablation of the medial branch lumbar area Patients currently on [place] 01/6025 every 8 hours, baclofen 10 mg daily at bedtime, Motrin 800 mg 3 times a day Patient denies any side effects of the medication, denies excessive drowsiness or sleepiness, denies suicidal ideation, and reports that the current pain medication is helping to control the pain and improve activity of daily living , she is complaining of severe numbness and tingling sensation in her left arm, and she is complaining of some neck pain Patient denies any motor or sensory deficit , patient denies any fever or night sweats, denies any change in the bowel movements or urination Physical Examinations : 1-Constitutional : Cooperative , not in acute distress . 2-HEENT : nech ; supple , no Lymphadenopathy , no Thyromegaly , normal thyroid size . eyes : no ptosis , no icterus, no photophobia . ENT : normal of hearing , normal oropharynx , no Thrush . 3- Respiratory : Chest clear to auscultations Bilaterally , no wheezing , no Rhonchi . 4- Cardiovascular : regular rate and rhythem , S1 , S2 , no S3 , no S4. 5- Gastrointestinal : abdomen soft no tenderness , bowel sounds positive all four quadrents , no organomegally . 6- Genitourinary : Defferred . 7- neurologic: Cranial nerve II to XII intact , no focal neurological deffecit . 8- Psychatric: alert , oriented X 3 , appropriate affect , intact judgment and insight . 9- Lymphatic : no Lymphadenopathy . 10- Musculoskeltal : exams of the cervical spine = motor strength normal bilateral upper extremities facet loading test cervical area positive. Normal sensation in the upper extremities Abduction and abduction, and rotation of the left shoulder associated with severe pain exams of the Lumber spine =motor strength lower extremities ,thigh and legs .5/5 deep tendon reflexes : normal Knee Jerk , normal ankle Jerk . lumber facet Loading Test positive strait leg raising test positive at 30 degree , RT ,LT , Fabere test positive RT and positive LT . Range of motion: Range of motion in flexion of the lumbar spine 30 degrees Range of motion range of motion of extension of the lumbar spine 10 Assessment and plan = Chronic low back pain secondary to lumbar degenerative disc disease , lumbar spondylosis with facet arthropathy without myelopathy , Low back pain improved after the radiofrequency ablation of the medial branch lumbar area. Patient currently having symptoms of cervical radiculopathy, and plus patient had left shoulder pain This very hard to determine if the numbness and tingling sensation secondary to cervical etiology versus brachial plexopathy chronic and current use of high-risk medication (Opioids). The patient was counseled about risk of opioid use, psychological risk associated with opioids and was orally counseled to not overuse , divert,or sell dictations to take medications as prescribed only , and to restore medication in safe location , the patient counseled against driving while using narcotic medications , and also not to use alcohol or any illicit recreational drugs, patient's verbalized understanding that the lack of compliance will result in failure to renew narcotic prescription and possible discharge from the clinic - diagnoses, prognosis, and treatment options including but not limited to physical therapy, surgical interventions, interventional therapies , and medication management including narcotics and adjuvant medication were discussed with the patient and all the questions answered MAPS reviewed and it was apropriate Prescription refill for [place] 10/325 every 8 hours dispense 90 with 1 refill,, discontinue baclofen, recommend to start Neurontin 300 mg daily at bedtime for one week increase to twice a day after that. I will order MRI of the cervical spine, because of the new finding about cervical radiculopathy Objective - Vital Signs Vital signs: Vital Signs Temp Pulse 107 H 02/10/18 14:22 Resp 16 02/10/18 14:22 BP 162/98 02/10/18 14:22 Pulse Ox 99 02/10/18 14:22 Intake & Output 02/10/18 02/11/18 02/11/18 18:59 06:59 18:59 Weight 68.039 kg PQRS Measure Charge Sheet Measure #130: Documentation of Current Meds in Medical Chart: Patient's medications documented in chart Measure #226: Tobacco Use: Screen & Cessation Intervention: Pt screened for tobacco use AND intervention given Measure #111: Pneumonia Vaccination: Pneumococcal vaccine NOT administered or previously given Measure #47: Advance Care Plan: Advance care planning discussed & documented, pt chose/unable to give Measure #412: Opioid Treatment Agreement: Documented signed opioid trtmnt agreemnt min once during opioid trtmnt Measure #408: Opioid Therapy Follow-up Evaluation: Patient had f/u eval minimum every 3 months during opioid therapy Measure #317: Preventitive Care & Scrn High Bld Press & F/U: Pre-hypertensive or hypertensive BP documented, pt will f/u with PCP Measure #128: Body Mass Index (BMI) Screening & Follow-up: BMI documented within normal parameters Measure #131: Pain Assessment & Follow-up: Pain positive & plan documented, Follow-up scheduled Measure #431: Unhealthy Alcohol Use Preventative Care & Scrn: Patient not identified as an unhealthy alcohol user PQRS Narrative: Smoking Status Current every day smoker Blood Pressure 162/98 Pain Intensity [Bilateral 7 Lower Back] Scale Used Numeric (1 - 10) Hx Alcohol Use (MH) No: NONE X 9 YRS Home Medications: Ambulatory Orders Ipratropium-Albuterol Nebulize [Duoneb 0.5 mg-3 mg/3 ml Soln] 1 inh INHALATION BID PRN 01/23/16 Sertraline [Zoloft] 100 mg PO DAILY 01/23/16 Ipratropium/Albuterol Sulfate [Combivent Respimat Inhaler] 2 puff INHALATION QID PRN 06/12/16 Omeprazole [PriLOSEC] 20 mg PO AC-BRKFST 06/12/16 Albuterol Inhaler [Ventolin Hfa Inhaler] 1 - 2 puff INHALATION RT-Q6H PRN Montelukast [Singulair] 10 mg PO HS 11/11/17 Budesonide/Formoterol Fumarate [Symbicort 80-4.5 Mcg Inhaler] 1 puff INHALATION BID 12/11/17 Aspirin [Adult Low Dose Aspirin EC] 81 mg PO DAILY 12/17/17 Beclomethasone Dipropionate [Qvar 80 mcg] 1 puff INHALATION DAILY 01/14/18 Polyethylene Glycol 3350 [Miralax] 17 gm PO DAILY 01/14/18 diphenhydrAMINE [Benadryl] 25 mg PO HS PRN 01/14/18 guaiFENesin [Mucinex] 600 mg PO BID PRN 01/14/18 Gabapentin [Neurontin] 300 mg PO BID #60 cap 02/10/18 HYDROcodone/APAP 10-325MG [[place] 10-325] 1 tab PO Q8HR PRN 30 Days #90 tab 02/10 HYDROcodone/APAP 10-325MG [[place] 10-325] 1 tab PO Q8HR PRN 30 Days #90 tab 02/10 Ibuprofen [Motrin] 800 mg PO TID PRN #90 tab 02/10/18 Losartan Potassium 50 mg PO DAILY 02/10/18 predniSONE 10 mg PO DAILY 02/10/18 Controlled Substance Measures - Controlled Substance Measures Is patient prescribed a controlled substance at discharge?: Yes When asked, does pt state using other controlled substances?: No If prescribed controlled substance>3 days was MAPS reviewed?: Yes If Rx opioid, was Start Talking consent form obtained?: Yes If opioid is for acute pain is fill amount 7 days or less?: No Was information provided regarding opioid addiction?: Yes
== END | disposition home or self-care (01) ==
LOC: PNWHC3 13:51
PROVIDERS: ATTEND Specialist
DX: G89.29 Other chronic pain (principal); M51.36 Other intervertebral disc degeneration, lumbar region; M47.816 Spondylosis without myelopathy or radiculopathy, lumbar region; M46.96 Unspecified inflammatory spondylopathy, lumbar region; M54.12 Radiculopathy, cervical region; M25.512 Pain in left shoulder; F17.200 Nicotine dependence, unspecified, uncomplicated; Z98.890 Other specified postprocedural states; Z79.51 Long term (current) use of inhaled steroids; Z79.52 Long term (current) use of systemic steroids; Z79.82 Long term (current) use of aspirin; Z79.891 Long term (current) use of opiate analgesic; Z79.899 Other long term (current) drug therapy
CPT/HCPCS: 99211

== ENCOUNTER → 2018-03-03 | Outpatient (CLI) | payer OTHER ==
--- NOTE | 2018-03-03 22:46 | MR ---
MRI CERVICAL SPINE: CLINICAL HISTORY: Cervical region radiculopathy and spondylosis per order. Headache with neck pain an d numbness and tingling causing pain or weakness into left arm and fingers per patient. TECHNIQUE: Multiplanar, multisequence imaging of the cervical spine is performed without IV contrast. . COMPARISON: Cervical spine x-ray November 03, 2013. FINDINGS: Sagittal images of the cervical spine show the craniocervical junction to appear within nor mal limits. The cervical and upper thoracic spinal cord is normal in course, caliber, and signal. V ertebral alignment is anatomic. The vertebral body heights are normal. Mild disc space narrowing C5 -C6 level is present. There are posterior disc herniations effacing anterior thecal sac C3-C4 through C5-C6 levels on sagittal images. The bone marrow signal intensity is within normal limits. Mild ante rior spurring C5-C6 level is noted. Axial images show the C2-C3 level to appear within normal limits. Axial images at C3-C4 level show left paracentral/foraminal spur disc complex effacing anterolateral thecal sac and causing asymmetric moderate left-sided neural foraminal narrowing. There is mild right -sided neural foraminal narrowing due to spur disc complex at this level. Axial images at C4-C5 level show posterior spur disc complex effacing anterior thecal sac and causing mild to moderate right greater than left bilateral neural foraminal narrowing. Axial images at C5-C6 level showed broad based posterior disc protrusion effacing the anterior thecal sac with asymmetric advanced left-sided neural foraminal narrowing due to more prominent left forami nal component. There is mild to moderate right-sided neural foraminal narrowing noted. Axial images at C6-C7 and C7-T1 levels are felt within normal limits. IMPRESSION: Multilevel degenerative changes most prominent at C3-C4 through C5-C6 levels as detailed above.
== END | disposition home or self-care (01) ==
LOC: RADMRIMAIN 19:37
PROVIDERS: ATTEND Specialist
DX: M47.812 Spondylosis without myelopathy or radiculopathy, cervical region (principal)
CPT/HCPCS: 72141

== ENCOUNTER → 2018-04-07 | Outpatient (CLI) | payer OTHER ==
[2018-04-07 12:13] VITALS: BP 145/70; PULSE 110; RESP 18
--- NOTE | 2018-04-07 12:59 | P.PN ---
Progress Note - Text Progress Note Date: 04/07/18 This is a follow-up visit for this 52 years old female, with a chronic history of low back pain and she is diagnosed with lumbar spondylosis, and recently we have done an MRI of the cervical spine , and it showed patient had cervical foraminal stenosis multilevel , today patient supposed to get her prescription refills, for Viper , but today during the interview I checked her urine drug screen and it was positive for amphetamine and methamphetamine, and explained to the patient , that the combination between the opioid and methamphetamine, and amphetamine, this extremely dangerous to her life, , patient kept Denying that she is taking any illegal medication, she'll be discharged from [facility] pain clinic
== END | disposition home or self-care (01) ==
LOC: PNWHC3 11:54
PROVIDERS: ATTEND Specialist
DX: G89.29 Other chronic pain (principal); M54.5 Low back pain; M47.816 Spondylosis without myelopathy or radiculopathy, lumbar region; M99.71 Connective tissue and disc stenosis of intervertebral foramina of cervical region; Z79.891 Long term (current) use of opiate analgesic
CPT/HCPCS: 99211

== ENCOUNTER → 2018-12-09 | Outpatient (CLI) | payer OTHER ==
--- NOTE | 2018-12-11 07:51 | MM ---
Reason for exam: screening (asymptomatic). Last mammogram was performed 1 year ago. History: Patient is postmenopausal, history of other cancer, and is nulliparous. Physical Findings: A clinical breast exam by your physician is recommended on an annual basis and results should be correlated with mammographic findings. MG Screening Mammo w CAD Bilateral CC and MLO view(s) were taken. Prior study comparison: December 05, 2017, bilateral MG 3d screening mammo w/cad. The breast tissue is heterogeneously dense. This may lower the sensitivity of mammography. No significant changes when compared with prior studies. ASSESSMENT: Benign, BI-RAD 2 RECOMMENDATION: Routine screening mammogram of both breasts in 1 year.
== END | disposition home or self-care (01) ==
LOC: RADMAMWWP 14:32
PROVIDERS: ATTEND Family Medicine
DX: Z12.31 Encounter for screening mammogram for malignant neoplasm of breast (principal)
CPT/HCPCS: 77067

== ENCOUNTER → 2019-10-16 | Outpatient (CLI) | payer MEDICARE, OTHER ==
--- NOTE | 2019-10-17 22:41 | XR ---
EXAMINATION TYPE: XR shoulder complete 3 views LT, XR wrist complete 4 views LT DATE OF EXAM: 10/16/2019 COMPARISON: NONE HISTORY: 53-year-old female fell 2 months ago, persistent pain. M25.512, M25.532 FINDINGS: Left shoulder: Capsular hypertrophy at the AC joint with mild joint space narrowing. There seems to be a healed frac ture deformity of the distal third clavicular shaft. Subacromial space is preserved. No acute fractur e, subluxation, dislocation. Visualized left hemithorax is clear. Left wrist: Severe degenerative change first CMC joint and moderate at the triscaphe joint. Prominent subcortical cysts are present. Possible subtle erosion at the ulnar styloid process. Overlying soft tissue swell ing. Some reticular osteopenia may be present. No acute fracture, subluxation, or dislocation. IMPRESSION: 1. Left shoulder: Mild AC joint OA. There is capsular swelling that could represent a mild sprain. No acute osseous abnormality seen. 2. Left wrist: Ulnar-sided soft tissue swelling and possible subtle early erosion of the ulnar styloi d process. Given periarticular osteopenia, correlate to exclude early inflammatory arthropathy/RA. Se wu first CMC joint and moderate triscaphe joint OA.
== END | disposition home or self-care (01) ==
LOC: RADXRMAIN 10:53
PROVIDERS: ATTEND Family Medicine
DX: M19.012 Primary osteoarthritis, left shoulder (principal); M19.032 Primary osteoarthritis, left wrist; M85.88 Other specified disorders of bone density and structure, other site

== ENCOUNTER → 2022-05-08 | Outpatient (CLI) | payer MEDICARE, OTHER ==
--- NOTE | 2022-05-09 17:56 | MM ---
Reason for Exam: Screening (asymptomatic). Last mammogram was performed 3 year(s) and 5 month(s) ago. Indicated Problems: Lump or thickening of the left side for 4 Year(s). Patient History: Menarche at age 9. Patient has no children. Postmenopausal. Other cancer. Risk Values: [place] 5 year model risk: 1.6%. NCI Lifetime model risk: 9.3%. Prior Study Comparison: 12/05/2017 Bilateral Screening Mammogram, [facility]. 12/09/2018 Bilateral Screening Mammogram, [facility]. Tissue Density: The breast tissue is heterogeneously dense. This may lower the sensitivity of mammography. Findings: Analyzed By CAD. Pattern appears stable. Marker is placed on the left breast. No mammographic abnormality at the level of the marker is evident. No suspicious groups of microcalcifications, spiculated or lobular masses, architectural distortion or other secondary signs of malignancy are mammographically apparent. Overall Assessment: Benign, BI-RAD 2 Management: Screening Mammogram of both breasts in 1 year. A negative mammogram report should not preclude additional follow up of suspicious palpable abnormalities. Patient should continue monthly self breast exam. A clinical breast exam by your physician is recommended on an annual basis and results should be correlated with mammographic findings. Electronically signed and approved by: Josiah Singh D.O. Radiologis
== END | disposition home or self-care (01) ==
LOC: RADMAMWWP 16:47
PROVIDERS: ATTEND Family Medicine
DX: Z12.31 Encounter for screening mammogram for malignant neoplasm of breast (principal); Z78.0 Asymptomatic menopausal state
CPT/HCPCS: 77063; 77067

== ENCOUNTER 2022-12-16 07:51 | Emergency (ER) | payer MEDICARE, OTHER ==
[2022-12-16] MEDS ORDERED: ALBUTEROL NEBULIZED 2.5 MG/3 ML INHALATION STA (08:17)
[2022-12-16] MEDS ORDERED: ALBUTEROL NEBULIZED 2.5 MG/3 ML INHALATION PRN (08:18)
--- NOTE | 2022-12-16 08:20 | ED ---
General Adult HPI - General Chief complaint: Psychiatric Symptoms Stated complaint: Mental Health Time Seen by Provider: 12/16/22 08:01 Source: patient, RN notes reviewed, old records reviewed Mode of arrival: ambulatory - History of Present Illness Initial comments: 57-year-old female presents for mental health evaluation. Patient states that she's had thoughts of suicide including a plan to overdose on medication. She does admit to alcohol abuse and alcohol intoxication currently. She states that she drank prior to arrival. Patient says she has a lot of stress in her life and this is been causing her to drink and have suicidal thoughts. - Related Data Home Medications Medication Instructions Recorded Confirmed Ipratropium-Albuterol Nebulize 3 ml INHALATION RT-QID 01/23/16 12/16/22 [Duoneb 0.5 mg-3 mg/3 ml Soln] Sertraline [Zoloft] 100 mg PO DAILY 01/23/16 12/16/22 Ipratropium/Albuterol Sulfate 2 puff INHALATION RT-QID 06/12/16 12/16/22 [Combivent Respimat Inhaler] Omeprazole [PriLOSEC] 20 mg PO DAILY 06/12/16 12/16/22 Albuterol Inhaler [Ventolin Hfa 2 puff INHALATION RT-QID 11/11/17 12/16/22 Inhaler] Montelukast [Singulair] 10 mg PO HS 11/11/17 12/16/22 Baclofen 10 mg PO HS 04/07/18 12/16/22 Atorvastatin [Lipitor] 20 mg PO DAILY 12/16/22 12/16/22 Docusate [Colace] 100 mg PO BID PRN 12/16/22 12/16/22 HYDROcodone/APAP 5-325MG [[place] 1 tab PO Q6H PRN 12/16/22 12/16/22 5-325] Ibuprofen [Motrin] 600 mg PO Q6H PRN 12/16/22 12/16/22 Ondansetron Odt [Zofran Odt] 4 mg PO Q8H PRN 12/16/22 12/16/22 Allergies Allergy/AdvReac Type Severity Reaction Status Date / Time lisinopril Allergy Cough Verified 12/16/22 11:55 tramadol [From Ultram] Allergy Seizures Verified 12/16/22 11:55 Review of Systems ROS Statement: Those systems with pertinent positive or pertinent negative responses have been documented in the HPI. ROS Other: All systems not noted in ROS Statement are negative. Past Medical History Past Medical History: Asthma, Cancer, GERD/Reflux, Hearing Disorder / Deafness Additional Past Medical History / Comment(s): Cervical with cone procedure. No chemo or radiation therapy needed. 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 "walking pneumonia" bronchitis dx 02/05/18 History of Any Multi-Drug Resistant Organisms: None Reported Date of last positivie culture/infection: None MDRO Source:: None Additional Past Surgical History / Comment(s): Cervical Cone biopsy Past Anesthesia/Blood Transfusion Reactions: No Reported Reaction Past Psychological History: Depression Smoking Status: Current every day smoker Past Alcohol Use History: Daily Past Drug Use History: None Reported - Past Family History Mother Family Medical History: No Reported History General Exam General appearance: alert, in no apparent distress, appears intoxicated Head exam: Present: atraumatic, normocephalic Eye exam: Present: normal appearance, PERRL ENT exam: Present: normal exam Neck exam: Present: normal inspection. Absent: tenderness, meningismus Respiratory exam: Present: wheezes. Absent: respiratory distress, accessory muscle use Cardiovascular Exam: Present: regular rate, normal rhythm GI/Abdominal exam: Present: soft. Absent: distended, tenderness, guarding Extremities exam: Present: normal inspection, normal capillary refill Neurological exam: Present: alert, oriented X3, CN II-XII intact. Absent: motor sensory deficit Psychiatric exam: Present: anxious, suicidal ideation Skin exam: Present: warm, dry, intact Course Vital Signs 12/16/22 12/16/22 12/16/22 07:54 09:03 09:10 Temperature 98.8 F Pulse Rate 105 H 100 106 H Respiratory 18 Rate Blood Pressure 147/87 O2 Sat by Pulse 97 Oximetry 12/16/22 12/16/22 12/16/22 13:24 13:34 13:42 Temperature Pulse Rate 87 84 86 Respiratory 22 Rate Blood Pressure 165/84 O2 Sat by Pulse 97 Oximetry Medical Decision Making - Medical Decision Making Was pt. sent in by a medical professional or institution (, PA, METAL DRILL PRESS OPERATOR, urgent care, hospital, or halfway...) When possible be specific @ -No Did you speak to anyone other than the patient for history (EMS, parent, family, police, friend...)? What history was obtained from this source @ -No Did you review nursing and triage notes (agree or disagree)? Why? @ -I reviewed and agree with nursing and triage notes Were old charts reviewed (outside hosp., previous admission, EMS record, old EKG, old radiological studies, urgent care reports/EKG's, halfway records)? Report findings @ -No old charts were reviewed Differential Diagnosis (chest pain, altered mental status, abdominal pain women, abdominal pain men, vaginal bleeding, weakness, fever, dyspnea, syncope, headache, dizziness, GI bleed, back pain, seizure, CVA, palpatations, mental health, musculoskeletal)? @ -Differential Mental Health Depression, anxiety, bipolar, psychosis, schizophrenia, borderline personality, situational depression, adjustment disorder, behavioral disorder, brain tumor, malingering, substance abuse, encephalopathy, medication reaction, dementia, hypothyroidism, degenerative neurologic disorder, lupus.... This is not meant to be all-inclusive list EKG interpreted by me (3pts min.). @ -As above X-rays interpreted by me (1pt min.). @ -None done CT interpreted by me (1pt min.). @ -None done U/S interpreted by me (1pt. min.). @ -None done What testing was considered but not performed or refused? (CT, X-rays, U/S, labs)? Why? @ -None What meds were considered but not given or refused? Why? @ -None Did you discuss the management of the patient with other professionals (professionals i.e. , PA, METAL DRILL PRESS OPERATOR, lab, RT, psych nurse, social work case manager, manager pharmaceutical, teacher, principal gifts officer, case management specialist)? Give summary @Case discussed with EPS who does recommend discharge with safety plan and outpatient referrals for depression and alcoholism Was smoking cessation discussed for >3mins.? @ -No Was critical care preformed (if so, how long)? @ -No Were there social determinants of health that impacted care today? How? (Homelessness, low income, unemployed, alcoholism, drug addiction, transportation, low edu. Level, literacy, decrease access to med. care, nursing home, rehab)? @ -No Was there de-escalation of care discussed even if they declined (Discuss DNR or withdrawal of care, Hospice)? DNR status @ -No What co-morbidities impacted this encounter? (DM, HTN, Smoking, COPD, CAD, Cancer, CVA, ARF, Chemo, Hep., AIDS, mental health diagnosis, sleep apnea, morbid obesity)? @ -[Alcoholism, depression, anxiety Was patient admitted / discharged? Hospital course, mention meds given and route, prescriptions, significant lab abnormalities, going to OR and other pertinent info. @ -[57-year-old female was medically cleared and evaluated after she was sober by EPS for thoughts of suicide and depression. Patient was able to safety plan and was given outpatient referrals. She is stable for discharge at this time with return parameters. Undiagnosed new problem with uncertain prognosis? @ -No Drug Therapy requiring intensive monitoring for toxicity (Heparin, Nitro, Insulin, Cardizem)? @ -No Were any procedures done? @ -No Diagnosis/symptom? @Alcohol abuse, depression Acute, or Chronic, or Acute on Chronic? @Acute Uncomplicated (without systemic symptoms) or Complicated (systemic symptoms)? @ -default Side effects of treatment? @ -No Exacerbation, Progression, or Severe Exacerbation? @ -No Poses a threat to life or bodily function? How? (Chest pain, [place], [place], pneumonia, PE, COPD, DKA, ARF, appy, cholecystitis, CVA, Diverticulitis, Homicidal, Suicidal, threat to staff... and all critical care pts) @ -Moderate risk - Lab Data Lab Results 12/16/22 Range/Units 08:15 Urine Opiates Screen Not Detected (NotDetected) Ur Oxycodone Screen Detected H (NotDetected) Urine Methadone Screen Not Detected (NotDetected) Ur Propoxyphene Screen Not Detected (NotDetected) Ur Barbiturates Screen Not Detected (NotDetected) U Tricyclic Antidepress Not Detected (NotDetected) Ur Phencyclidine Scrn Not Detected (NotDetected) Ur Amphetamines Screen Detected H (NotDetected) U Methamphetamines Scrn Not Detected (NotDetected) U Benzodiazepines Scrn Not Detected (NotDetected) Urine Cocaine Screen Not Detected (NotDetected) U Marijuana (THC) Screen Not Detected (NotDetected) Disposition Clinical Impression: Depression Disposition: HOME SELF-CARE Condition: Fair Instructions (If sedation given, give patient instructions): Depression (ED) Is patient prescribed a controlled substance at d/c from ED?: No Referrals: Jt Aranda MD [Primary Care Provider] - 1-2 days Time of Disposition: 15:43
[2022-12-16 10:19] LABS: Amphetamine Screen,Urine Detected (NotDetected); Barbiturate Screen,Urine Not Detected (NotDetected); Benzodiazepines Screen,Urine Not Detected (NotDetected); Cocaine Screen,Urine Not Detected (NotDetected); Methadone Screen, Urine Not Detected (NotDetected); Opiate Screen,Urine Not Detected (NotDetected); Oxycodone Screen, Urine Detected (NotDetected); Phencyclidine Screen,Urine Not Detected (NotDetected); Tricyclic Antidepressant,Urine Not Detected (NotDetected); Urn Cannabinoid Scrn Not Detected (NotDetected)
[2022-12-16] MEDS ORDERED: IPRATROPIUM-ALBUTEROL 3 ML NEB INHALATION PRN (13:24)
[2022-12-16 16:54] VITALS: PULSE 87; RESP 20; TEMP 98.6
[2022-12-16 16:56] VITALS: BP 201/107
== END 2022-12-16 16:56 | disposition home or self-care (01) ==
LOC: EC 07:51
DX: F32.A Depression, unspecified (principal); J45.909 Unspecified asthma, uncomplicated; K21.9 Gastro-esophageal reflux disease without esophagitis; F17.200 Nicotine dependence, unspecified, uncomplicated; Z88.5 Allergy status to narcotic agent; Z88.8 Allergy status to other drugs, medicaments and biological substances; Z79.899 Other long term (current) drug therapy
CPT/HCPCS: 80306; 82075; 94640; 99285

== ENCOUNTER → 2023-04-08 | Outpatient (CLI) | payer MEDICARE, OTHER ==
--- NOTE | 2023-04-14 22:56 | CTL ---
EXAMINATION TYPE: CT Low Dose Lung DATE OF EXAM: 04/08/2023 2:29 PM CLINICAL INDICATION:Female, 57 years old with history of Z12.2 ENCNTR SCREEN FOR MALIGNANT NEOPLASM O F RESP; personal h/o tobacco use, current smoker , history of tobacco use. COMPARISON: None. This is a baseline study. TECHNIQUE: CT scan of the chest obtained without contrast from approximately the lung apices through the upper abdomen. Axial, coronal and sagittal reformatted images were obtained. Low dose technique w as utilized for nodule screening purposes. CT DLP: 81.5 mGycm, Automated exposure control for dose reduction was used. CT Contrast: Contrast used: None Oral contrast used: None FINDINGS: Lack of intravenous contrast and low dose technique limits the evaluation of the vascular and soft ti ssue structures. LUNGS: No evidence of pulmonary fibrosis. No evidence of focal consolidation, pneumothorax or pleural effusion. No significant emphysematous changes are clearly identified, though there could be tiny m ild developing emphysematous changes near the apices. Lungs appear slightly expanded in the AP dimens ion which may suggest an element of COPD physiology. Nodules: RUL: A 3.8 mm nodule image 64 series 4. RML: None RLL: None GREG: None LLL: None AIRWAY: Patent and unremarkable. LOWER NECK: No significant findings. HEART AND VASCULATURE: Heart size upper normal.. Mild coronary artery calcifications. Irregular dens ities along the aortic valve suggesting moderate calcification. Mild calcification along the aortic a rch. Ascending aorta shows fusiform ectasia up to 3.8 cm. The descending aorta is 2.5 cm. Pulmonary t runk is upper limits of normal in size, measuring 2.9 cm. MEDIASTINUM: No gross evidence of adenopathy. SOFT TISSUES/LYMPH NODES: Unremarkable soft tissues. No axillary adenopathy. UPPER ABDOMEN: No significant finding. Partially seen small curvilinear calcification medial to the l eft kidney, likely vascular. MUSCULOSKELETAL: Mild degenerative changes of the thoracic spine. Rudimentary rib formation at T12. S mall sclerotic marginated Schmorl's node with mild loss of height along the superior endplate T8, chr onic in appearance. Nonunited remote appearing fracture of the right posterior seventh rib. IMPRESSION: 1. Tiny right lung nodule, benign in appearance. 2. Heart size upper normal.. Mild coronary artery calcifications. 3. Moderate aortic valve calcification. Mild fusiform ectasia of the ascending aorta up to 3.[address] LUNG RAD AND CT CHEST RECOMMENDATION: Lung-Rad 2 Benign Appearance or Behavior: Continue annual sc reening with LDCT in 12 months. C Modifier (Personal history of lung cancer?): No. S Modifier (Other clinically significant or potentially significant findings?): Yes (see below). Other significant or potentially significant abnormalities: Moderate aortic valve calcification. Mil d fusiform ectasia of the ascending aorta up to 3.8 cm. Recommend smoking cessation (if current smoker), or continuation of smoking cessation (if prior smoke r). Annual screening for lung cancer with low-dose computed tomography is recommended in adults ages 55 to 77 years who have a 30 pack-year smoking history and currently smoke or have quit within the pa st 15 years. Screening should be discontinued once a person has not smoked for 15 years or develops a health problem that substantially limits life expectancy or the ability or willingness to have curat michelle lung surgery. Lung rads 2021 [email or web address]
== END | disposition home or self-care (01) ==
LOC: RADCTMAIN 14:13
PROVIDERS: ATTEND Family Medicine
DX: Z12.2 Encounter for screening for malignant neoplasm of respiratory organs (principal); I25.10 Atherosclerotic heart disease of native coronary artery without angina pectoris; I77.810 Thoracic aortic ectasia; I35.8 Other nonrheumatic aortic valve disorders; R91.1 Solitary pulmonary nodule; F17.210 Nicotine dependence, cigarettes, uncomplicated
CPT/HCPCS: 71271